=== PATIENT | male | born 1955 | race African-American/Black ===

== ENCOUNTER 2017-01-13 21:58 | Observation (INO) | payer MEDICAID, OTHER ==
[~2017-01-13] VITALS: Ht 177.8 cm; Wt 84.0 kg
[~2017-01-13 21:58] MED LIST: LISI-363 PO; NORV5TAB PO; RANI150 PO
[2017-01-13 22:06] VITALS: BP 135/97; PULSE 97; RESP 16; TEMP 98; O2SAT 97
[2017-01-14] MEDS ORDERED: OXYC-395 PO (04:19)
[2017-01-14] MEDS ORDERED: ZANT150T2 PO (04:19)
[2017-01-14] MEDS ORDERED: AMLO5 PO (04:19)
[2017-01-14] MEDS ORDERED: SUCRALFATE 1 GM/10 ML CUP PO ONE (05:15)
--- NOTE | 2017-01-14 05:16 | PD ---
HPI Chief Complaint: Medical Clearance Time Seen by Provider: 05:11 Travel History International Travel<30 days: No Contact w/Intl Traveler<30days: No Traveled to known affect area: No History of Present Illness HPI 61-year-old male presents to the emergency department for evaluation of abdominal pain and increasing girth. Patient admits to daily alcohol use. Patient states he's been drinking alcohol daily since November 15. Patient has history of previous alcoholism and pancreatitis. Patient also admits to cocaine abuse. Patient denies any chest pain or shortness of breath. Patient' s had no hemoptysis or coffee-ground emesis. Or hematemesis. Patient also had no change in his bowel movements. Patient states he has normal bowel movements and no melena or hematochezia. Patient states that he is hungry. Patient denies any recent febrile illness or chills. Patient states that because of his increasing abdominal girth he decided to come to the hospital to be evaluated. Patient rates his overall pain 510/10 in intensity. Patient admits to substance use. PFSH Past Medical History Narrative Medical Hypertension pancreatitis alcohol use/abuse polysubstance ingestion nursing notes reviewed Cardiovascular Problems: Yes (HTN) Hypertension: Yes Pancreatitis: Yes Influenza Vaccination: No Social History Alcohol Use: Yes ( beer and liquor daily) Tobacco Use: No (1ppd) Substance Use: Yes (marijuana/cocoaine) Allergies-Medications (Allergen,Severity, Reaction): Coded Allergies: Milk (Verified Adverse Reaction, Severe, Nausea/Vomiting, 01/13/17) Reported Meds & Prescriptions Reported Meds & Active Scripts Active Reported Oxycodone (Oxycodone HCl) 10 Mg Tab 10 Mg PO Q6H PRN Zantac (Ranitidine HCl) 150 Mg Tab 150 Mg PO DAILY Norvasc (Amlodipine Besylate) 5 Mg Tab 5 Mg PO DAILY Review of Systems Except as stated in HPI: all other systems reviewed are Neg General / Constitutional: No: Fever, Chills Eyes: No: Visual changes HENT: No: Headaches Cardiovascular: No: Chest Pain or Discomfort Respiratory: No: Shortness of Breath Gastrointestinal: Positive: Abdominal Pain, Other, No: Nausea, Vomiting, Diarrhea Genitourinary: No: Dysuria, Flank Pain (increasing abdominal girth) Musculoskeletal: No: Myalgias, Arthralgias Skin: No Rash Neurologic: No: Weakness, Dizziness, Syncope Psychiatric: Positive: Substance Abuse, No: Anxiety Hematologic/Lymphatic: No: Easy Bruising Physical Exam Narrative Well-developed well-nourished male in no acute distress no respiratory distress GENERAL: SKIN: Warm and dry. HEAD: Atraumatic. Normocephalic. EYES: Pupils equal and round. No scleral icterus. No injection or drainage. ENT: No nasal bleeding or discharge. Mucous membranes pink and moist. NECK: Trachea midline. No JVD. CARDIOVASCULAR: Regular rate and rhythm. RESPIRATORY: No accessory muscle use. Clear to auscultation. Breath sounds equal bilaterally. GASTROINTESTINAL: Abdomen soft, non-tender, mild fluid wave, nondistended. Hepatic and splenic margins not palpable. MUSCULOSKELETAL: Extremities without clubbing, cyanosis, or edema. No obvious deformities. NEUROLOGICAL: Awake and alert. No obvious cranial nerve deficits. Motor grossly within normal limits. Five out of 5 muscle strength in the arms and legs. Normal speech. PSYCHIATRIC: Appropriate mood and affect; insight and judgment normal. Data Data Last Documented VS Vital Signs Date Time Temp Pulse Resp B/P Pulse Ox O2 Delivery O2 Flow Rate FiO2 01/13/17 22:06 98.0 97 16 135/97 97 Room Air Orders Complete Blood Count With Diff (01/14/17 05:11) Comprehensive Metabolic Panel (01/14/17 05:11) Urinalysis - C+S If Indicated (01/14/17 05:11) Psych Screen (01/14/17 05:11) Drug Screen, Random Urine (01/14/17 05:11) Alcohol (Ethanol) (01/14/17 05:11) Lipase (01/14/17 05:11) Sucralfate Liq (Carafate Liq) (01/14/17 05:15) Electrocardiogram (01/14/17 ) Ckmb (Isoenzyme) Profile (01/14/17 07:37) Troponin I (01/14/17 07:37) Chest, Single Ap (01/14/17 07:37) Labs Laboratory Tests Test 01/14/17 05:30 White Blood Count 5.9 TH/MM3 Red Blood Count 4.73 MIL/MM3 Hemoglobin 14.5 GM/DL Hematocrit 41.7 % Mean Corpuscular Volume 88.0 FL Mean Corpuscular Hemoglobin 30.7 PG Mean Corpuscular Hemoglobin 34.8 % Concent Red Cell Distribution Width 16.9 % Platelet Count 143 TH/MM3 Mean Platelet Volume 10.0 FL Neutrophils (%) (Auto) 35.5 % Lymphocytes (%) (Auto) 40.8 % Monocytes (%) (Auto) 15.9 % Eosinophils (%) (Auto) 6.9 % Basophils (%) (Auto) 0.9 % Neutrophils # (Auto) 2.1 TH/MM3 Lymphocytes # (Auto) 2.4 TH/MM3 Monocytes # (Auto) 0.9 TH/MM3 Eosinophils # (Auto) 0.4 TH/MM3 Basophils # (Auto) 0.1 TH/MM3 CBC Comment DIFF FINAL Differential Comment MDM Medical Decision Making Medical Screen Exam Complete: Yes Emergency Medical Condition: Yes Medical Record Reviewed: Yes Interpretation(s) CBC & BMP Diagram 01/14/17 05:30 EKG normal sinus rhythm with rare PVC incomplete right bundle branch block no acute ST elevation or injury pattern change noted Differential Diagnosis Abdominal pain, cirrhosis, alcoholism, polysubstance ingestion, ACS, [place], arrhythmia, electronic disturbance Narrative Course IV access obtained, specimens could be collected Patient repeatedly asking for food and something to drink and states his pain is not being addressed; patient again informed that we need all of his lab work including a urine specimen to help better assess his condition Patient sleeping upon awakening states he is having abdominal pain; again with direct palpation there is no guarding no rebound and abdomen is nontender lab values pending At 7 AM lab values remain pending and care is signed over to oncoming physician Bharti Mcadams MD Jan 14, 2017 05:16
[2017-01-14 05:51] LABS: AUTOMATED NEUTROPHIL # 2.1 TH/MM3 (1.8-7.7); BASOPHIL # 0.1 TH/MM3 (0-0.2); BASOPHIL % 0.9 % (0.0-2.0); EOSINOPHIL # 0.4 TH/MM3 (0-0.4); EOSINOPHIL % 6.9 % (0.0-4.0); HEMATOCRIT 41.7 % (39.0-51.0); HEMO FLAGS DIFF FINAL; LYMPH % 40.8 % (9.0-44.0); LYMPHOCYTE # 2.4 TH/MM3 (1.0-4.8); MEAN CORPUSCULAR HEMOGLOBIN 30.7 PG (27.0-34.0); MEAN CORPUSCULAR HGB CONC 34.8 % (32.0-36.0); MONO % 15.9 % (0.0-8.0); NEUT % 35.5 % (16.0-70.0); PLATELET COUNT 143 TH/MM3 (150-450); RED BLOOD COUNT 4.73 MIL/MM3 (4.50-5.90); RED CELL DISTRIBUTION WIDTH 16.9 % (11.6-17.2); WHITE BLOOD COUNT 5.9 TH/MM3 (4.0-11.0)
--- NOTE | 2017-01-14 07:45 | PD ---
Physical Exam Date Seen by Provider: Jan 14, 2017 Data Data Last Documented VS Vital Signs Date Time Temp Pulse Resp B/P Pulse Ox O2 Delivery O2 Flow Rate FiO2 01/14/17 09:06 50 14 156/72 95 Room Air 01/13/17 22:06 98.0 Orders Complete Blood Count With Diff (01/14/17 05:11) Comprehensive Metabolic Panel (01/14/17 05:11) Urinalysis - C+S If Indicated (01/14/17 05:11) Psych Screen (01/14/17 05:11) Drug Screen, Random Urine (01/14/17 05:11) Alcohol (Ethanol) (01/14/17 05:11) Lipase (01/14/17 05:11) Sucralfate Liq (Carafate Liq) (01/14/17 05:15) Electrocardiogram (01/14/17 ) Chest, Single Ap (01/14/17 07:37) Aspirin (Aspirin) (01/14/17 08:15) Nitroglycerin Sl (Nitrostat Sl) (01/14/17 08:15) Electrocardiogram (01/14/17 ) Ckmb (Isoenzyme) Profile (01/14/17 07:55) Troponin I (01/14/17 07:55) Amlodipine (Norvasc) (01/14/17 08:45) CKMB (01/14/17 07:55) CKMB% (01/14/17 07:55) ^ Sitter (01/14/17 09:09) Labs Laboratory Tests Test 01/14/17 01/14/17 01/14/17 05:30 07:45 07:55 White Blood Count 5.9 TH/MM3 Red Blood Count 4.73 MIL/MM3 Hemoglobin 14.5 GM/DL Hematocrit 41.7 % Mean Corpuscular Volume 88.0 FL Mean Corpuscular Hemoglobin 30.7 PG Mean Corpuscular Hemoglobin 34.8 % Concent Red Cell Distribution Width 16.9 % Platelet Count 143 TH/MM3 Mean Platelet Volume 10.0 FL Neutrophils (%) (Auto) 35.5 % Lymphocytes (%) (Auto) 40.8 % Monocytes (%) (Auto) 15.9 % Eosinophils (%) (Auto) 6.9 % Basophils (%) (Auto) 0.9 % Neutrophils # (Auto) 2.1 TH/MM3 Lymphocytes # (Auto) 2.4 TH/MM3 Monocytes # (Auto) 0.9 TH/MM3 Eosinophils # (Auto) 0.4 TH/MM3 Basophils # (Auto) 0.1 TH/MM3 CBC Comment DIFF FINAL Differential Comment Urine Color YELLOW Urine Turbidity CLEAR Urine pH 6.0 Urine Specific [place] 1.022 Urine Protein TRACE mg/dL Urine Glucose (UA) NEG mg/dL Urine Ketones 10 mg/dL Urine Occult Blood NEG Urine Nitrite NEG Urine Bilirubin NEG Urine Urobilinogen 8.0 MG/DL Urine Leukocyte Esterase NEG Urine WBC 1 /hpf Urine Mucus FEW /lpf Microscopic Urinalysis Comment CULT NOT INDICATED Urine Opiates Screen NEG Urine Barbiturates Screen NEG Urine Amphetamines Screen NEG Urine Benzodiazepines Screen POS Urine Cocaine Screen POS Urine Cannabinoids Screen POS Sodium Level 138 MEQ/L Potassium Level 3.8 MEQ/L Chloride Level 104 MEQ/L Carbon Dioxide Level 25.4 MEQ/L Anion Gap 9 MEQ/L Blood Urea Nitrogen 15 MG/DL Creatinine 1.03 MG/DL Estimat Glomerular Filtration 89 ML/MIN Rate Random Glucose 107 MG/DL Calcium Level 8.8 MG/DL Total Bilirubin 0.9 MG/DL Aspartate Amino Transf 75 U/L (AST/SGOT) Alanine Aminotransferase 104 U/L (ALT/SGPT) Alkaline Phosphatase 85 U/L Total Creatine Kinase 350 U/L Creatine Kinase MB 2.0 NG/ML Creatine Kinase MB % 0.6 % Troponin I 0.03 NG/ML Total Protein 8.7 GM/DL Albumin 3.8 GM/DL Lipase 332 U/L Ethyl Alcohol Level LESS THAN 3 MG/DL [facility] Medical Record Reviewed: Yes Supervised Visit with LELA: No Interpretation(s) Vital Signs Date Time Temp Pulse Resp B/P Pulse Ox O2 Delivery O2 Flow Rate FiO2 01/13/17 22:06 98.0 97 16 135/97 97 Room Air CBC & BMP Diagram 01/14/17 05:30 Differential Diagnosis cocaine chest pain, suicidal ideations, alcoholism, liver cirrhosis, polysubstance abuse, ACS, arrhythmia, electrolyte abnormality Narrative Course Patient was signed out to me at change of shift Patient is a 61-year-old male who was sent to the emergency room by Danny Johnson for medical evaluation. As per patient, he is an alcoholic, reports that he has been drinking heavily for a while now, reports that he is also been using drugs. Patient reports that he has been using cocaine and every time he uses cocaine, he has chest pain. Patient reports that he did abuse cocaine last night and began to have chest pain after using this drugs. Patient reports that he went to [facility] for evaluation, was told to come to the emergency room for medical clearance. Patient reports that he is feeling suicidal, reports that if he leaves this emergency room, he will go and commit suicide. Labs pending including cardiac enzymes, EKG at 0532: Normal sinus rhythm at 97 bpm, incomplete right bundle branch block, QT/QTC 377/431 Patient will require admission for acute chest pain with suicidal ideations patient now complaining of chest pain - repeat ekg ordered as well as ce, will give asa and sl nitro Physician Communication Physician Communication case reviewed with dr madison who accepts pt to service Diagnosis Primary Impression: Cocaine abuse Additional Impressions: Chest pain Qualified Code: R07.9 - Chest pain, unspecified type Suicidal ideation Alcohol abuse Admitting Information Admitting Physician Requests: Observation Leslie Barraza DO Jan 14, 2017 07:45
[2017-01-14 08:04] VITALS: BP 161/114; PULSE 92; RESP 12; O2SAT 95
[2017-01-14 08:05] VITALS: BP 161/114; PULSE 92; RESP 15; O2SAT 95
[2017-01-14 08:06] LABS: BLOOD, URINE NEG (NEG); COMMENT (UR) CULT NOT INDICATED; CULTURE IF INDICATED CULT NOT INDICATED; GLUCOSE,URINE NEG (NEG); KETONE, URINE 10 mg/dL (NEG); MUCUS URINE FEW /lpf (OCC); NITRITE,URINE NEG (NEG); URINE COLOR YELLOW (YELLW/STRAW)
[2017-01-14] MEDS: NITROGLYCERIN 0.4 MG SL 25 TABS/BTL SL SCH ×3 (08:08→08:25)
[2017-01-14] MEDS ORDERED: ASPIRIN 325 MG TAB PO ONE (08:15)
--- NOTE | 2017-01-14 08:17 | RADRPT ---
EXAM DATE/TIME: 01/14/2017 07:56 [place] COMPARISON: No previous studies available for comparison. INDICATIONS : Chest pains with abdomen pains, and distention. MEDICAL HISTORY : Myocardial infarction. SURGICAL HISTORY : None. ENCOUNTER: Initial ACUITY: 2 days PAIN SCORE: 9/10 LOCATION: Bilateral chest FINDINGS: A single view of the chest demonstrates the lungs to be symmetrically aerated without evidence of mas s, infiltrate or effusion. The cardiomediastinal contours are unremarkable. Osseous structures are intact. CONCLUSION: No acute disease. Stevan Solis MD on January 14, 2017 at 8:15 Board Certified Radiologist. This report was verified electronically.
[2017-01-14 08:33] LABS: ANION GAP 9 MEQ/L (5-15)
[2017-01-14 08:34] LABS: ALKALINE PHOSPHATASE 85 U/L (45-117); ALT (GPT) 104 U/L (12-78); AST (GOT) 75 U/L (15-37); BICARBONATE 25.4 MEQ/L (21.0-32.0); BLOOD UREA NITROGEN 15 MG/DL (7-18); CHLORIDE 104 MEQ/L (98-107); GLOMERULAR FILTRATION RATE 89 ML/MIN (>89); POTASSIUM 3.8 MEQ/L (3.5-5.1); SODIUM (NA) 138 MEQ/L (136-145); TOTAL BILIRUBIN ADULT 0.9 MG/DL (0.2-1.0)
[2017-01-14] MEDS ORDERED: amLODIPine BESYLATE 5 MG TAB PO ONE (08:45)
[2017-01-14 08:53] LABS: CREATINE KINASE 350 U/L (39-308)
[2017-01-14 08:57] LABS: AMPHETAMINE, URINE NEG (NEG); BARBITURATES, URINE NEG (NEG); COCAINE, URINE POS (NEG)
[2017-01-14 09:06] VITALS: BP 156/72; PULSE 50; RESP 14; O2SAT 95
[2017-01-14] MEDS ORDERED: NITROGLYCERIN 0.4 MG SL 25 TABS/BTL SL PRN (09:45)
[2017-01-14] MEDS ORDERED: SODIUM CHLORIDE 0.9% FLUSH 5 ML FLUSH IV PRN (09:45)
--- NOTE | 2017-01-14 13:41 | HHI.HP ---
[facility] Primary Care Physician No Primary Care Physician Admission Diagnosis cocaine chest pain, suicidal idealations, alcohol abuse Diagnoses: (1) Chest pain Diagnosis: Principal (2) Alcohol abuse (3) Cocaine abuse (4) Suicidal ideation Chief Complaint: Chest pain Travel History International Travel<30 Days: No Contact w/Intl Traveler <30 Da: No Traveled to Known Affected Are: No History of Present Illness The patient is a 61-year-old male who presented to the emergency department after being referred from [facility] for medical clearance. He has a history of alcoholism and polysubstance abuse. He reports that he drinks "as much as I can get". He also admits to recent cocaine use, most recently yesterday. He states that he gets chest pain whenever he uses cocaine. Currently he is still reporting pain in the left side of the chest does not radiate. He states that the pain is intermittent. He reports that his abdomen has gotten larger recently. No current abdominal pain. Review of Systems Constitutional: DENIES: Fever, Chills, Night Sweats Eyes: DENIES: Blurred vision, Vision loss Ears, nose, mouth, throat: DENIES: Hearing loss Respiratory: DENIES: Cough, Wheezing, Sputum production, Shortness of breath Cardiovascular: COMPLAINS OF: Chest pain, DENIES: Palpitations, Dyspnea on Exertion, Lower Extremity Edema Gastrointestinal: DENIES: Abdominal pain, Constipation, Diarrhea, Nausea, Vomiting Genitourinary: DENIES: Urinary frequency, Urinary incontinence, Urgency, Hematuria, Dysuria, Nocturia Musculoskeletal: DENIES: Joint pain, Muscle aches Integumentary: DENIES: Pruritus, Rash Hematologic/lymphatic: DENIES: Bruising Neurologic: DENIES: Headache Psychiatric: COMPLAINS OF: Anxiety, Suicidal Ideation Past Family Social History Past Medical History Anxiety Bipolar disorder Reported history of HI Hypertension History of pancreatitis Reported Medications Oxycodone (Oxycodone HCl) 10 Mg Tab 10 Mg PO Q6H PRN Zantac (Ranitidine HCl) 150 Mg Tab 150 Mg PO DAILY Norvasc (Amlodipine Besylate) 5 Mg Tab 5 Mg PO DAILY Allergies: Coded Allergies: Milk (Verified Adverse Reaction, Severe, Nausea/Vomiting, 01/13/17) Family History Depression Alcoholism Social History Smokes one pack per day. Admits to marijuana and cocaine use. Reports heavy alcohol use. Physical Exam Vital Signs Vital Signs Date Time Temp Pulse Resp B/P Pulse Ox O2 Delivery O2 Flow Rate FiO2 01/14/17 09:06 50 14 156/72 95 Room Air 01/14/17 08:05 92 15 161/114 95 Room Air 01/14/17 08:04 92 12 161/114 95 Room Air 01/13/17 22:06 98.0 97 16 135/97 97 Room Air Physical Exam GENERAL: Well-nourished, well-developed male in no acute distress. HEENT: Normocephalic, atraumatic. Pupils equal, round and reactive. Extraocular movements intact. No scleral icterus. No injection or drainage. Oropharynx is clear. Mucous membranes are moist. Poor dentition. CARDIOVASCULAR: Regular rate and rhythm without murmurs, gallops, or rubs. RESPIRATORY: Clear to auscultation. No wheezes, rales, or rhonchi. Breathing is non-labored. GASTROINTESTINAL: Abdomen soft, non-tender, mildly stented. EXTREMITIES: No lower extremity edema. No calf tenderness. PSYCH: Alert and oriented x 3. Laboratory Laboratory Tests Test 01/14/17 01/14/17 01/14/17 05:30 07:45 07:55 White Blood Count 5.9 Red Blood Count 4.73 Hemoglobin 14.5 Hematocrit 41.7 Mean Corpuscular Volume 88.0 Mean Corpuscular Hemoglobin 30.7 Mean Corpuscular Hemoglobin 34.8 Concent Red Cell Distribution Width 16.9 Platelet Count 143 Mean Platelet Volume 10.0 Neutrophils (%) (Auto) 35.5 Lymphocytes (%) (Auto) 40.8 Monocytes (%) (Auto) 15.9 Eosinophils (%) (Auto) 6.9 Basophils (%) (Auto) 0.9 Neutrophils # (Auto) 2.1 Lymphocytes # (Auto) 2.4 Monocytes # (Auto) 0.9 Eosinophils # (Auto) 0.4 Basophils # (Auto) 0.1 CBC Comment DIFF FINAL Differential Comment Urine Color YELLOW Urine Turbidity CLEAR Urine pH 6.0 Urine Specific [place] 1.022 Urine Protein TRACE Urine Glucose (UA) NEG Urine Ketones 10 Urine Occult Blood NEG Urine Nitrite NEG Urine Bilirubin NEG Urine Urobilinogen 8.0 Urine Leukocyte Esterase NEG Urine WBC 1 Urine Mucus FEW Microscopic Urinalysis Comment CULT NOT INDICATED Urine Opiates Screen NEG Urine Barbiturates Screen NEG Urine Amphetamines Screen NEG Urine Benzodiazepines Screen POS Urine Cocaine Screen POS Urine Cannabinoids Screen POS Sodium Level 138 Potassium Level 3.8 Chloride Level 104 Carbon Dioxide Level 25.4 Anion Gap 9 Blood Urea Nitrogen 15 Creatinine 1.03 Estimat Glomerular Filtration 89 Rate Random Glucose 107 Calcium Level 8.8 Total Bilirubin 0.9 Aspartate Amino Transf 75 (AST/SGOT) Alanine Aminotransferase 104 (ALT/SGPT) Alkaline Phosphatase 85 Total Creatine Kinase 350 Creatine Kinase MB 2.0 Creatine Kinase MB % 0.6 Troponin I 0.03 Total Protein 8.7 Albumin 3.8 Lipase 332 Ethyl Alcohol Level LESS THAN 3 Result Diagram: 01/14/17 0530 01/14/17 0755 Imaging Last Impressions Chest X-Ray 01/14/17 0737 Signed Impressions: Service Date/Time: January 07:56 - CONCLUSION: No acute disease. Stevan Solis MD Assessment and Plan Assessment and Plan 1. Chest pain: Likely secondary to cocaine use, but patient does report history of HI. Initial set of cardiac enzymes is negative. Monitor serial cardiac enzymes. Monitor on telemetry. Nitroglycerin as needed. 2. Hypertension: Continue Norvasc. 3. Severe anxiety, bipolar disorder: Appreciate psychiatry recommendations. Patient is not currently on any psychiatric medications. 4. Polysubstance abuse: Patient has been counseled. Urine drug screen positive for cocaine, cannabinoids, benzodiazepines. 5. Suicidal ideation: Patient made suicidal statements in the ER. Psychiatry has been consulted. Discussed with Dr. Virk. Patient does not meet criteria for inpatient psychiatric admission. 6. GI prophylaxis: PPI. 7. DVT prophylaxis: Lovenox. 8. Elevated LFTs: Check hepatitis profile. Repeat labs in AM. Check abdominal ultrasound. Problem Qualifiers (1) Chest pain: Qualified Code: R07.9 - Chest pain, unspecified type Ming Rogers MD Jan 14, 2017 13:41
[2017-01-14] MEDS: PANTOPRAZOLE SOD 40 MG DELAYED RELEASE TAB PO SCH (14:31)
[2017-01-14] MEDS: ENOXAPARIN SODIUM 40 MG/0.4 ML SYRINGE SQ SCH (14:32)
[2017-01-14] MEDS ORDERED: hydrOXYzine HCL 50 MG TAB PO STA (14:44)
[2017-01-14] MEDS ORDERED: QUEtiapine FUMARATE 100 MG TAB PO ONE (14:45)
[2017-01-14 14:49] VITALS: PULSE 95
--- NOTE | 2017-01-14 15:01 | PD.CONS ---
Provisional Diagnosis Admission Date Jan 14, 2017 at 09:48 [place] I. Polysubstance dependence, including cocaine, benzodiazepines, cannabis, alcohol , self reported anxiety and depression [place] II. R/O antisocial personality disorder [place] III. Hypertension, chest pain [place] IV. Lack of family and social support, history of incarcerations and violent behavior [place] V. 56 History of Present Illness Service Psychiatry Consult Requested By Primary Care Physician No Primary Care Physician HPI The patient is a 61-year-old man, domicile with friends, unemployed, on disability, with self-reported psychiatric history of anxiety and depression, multiple psychotic hospitalizations, polysubstance dependence, including cocaine, benzodiazepines, cannabis and alcohol, previous suicidal attempts, history of aggressive behavior, incarcerations, longest period imprisoned 20 years, medical history hypertension, who came to the hospital with abdominal and chest pain in the context of cocaine intoxication. Patient has been very needy in the ER, drug seeking, intrusive and demanding, requesting to be treated with narcotics and benzodiazepine, but once denied this medications he expressed suicidal ideation and was Rodriguez acted. On psychiatric evaluation patient is found eating his lunch, he is calm, cooperative, he states that he has been mad because the nurses are not taking care of him "and they have been disrespectful with me telling me to my problem is a cocaine problem". Patient reports angry mood, but denies suicidal and homicidal ideation this moment, denies visual and auditory hallucinations. Patient states that he would like to speak with a certified social workers in health care because he wants to get an apartment or maybe he wants to go back to a state hospital. He says that he wants to be medically treated for his chest pain, but he wants to get some medication for anxiety and for leg pain. He reports daily use of cocaine, marijuana, and alcohol. When asked about what is getting benzodiazepines from, he denies the use of benzodiazepine, confronted about benzodiazepine positive in toxicology he states"I don't know". Patient is fully oriented 3. Review of Systems Constitutional: DENIES: Diaphoretic episodes, Fatigue, Fever, Weight gain, Weight loss, Chills, Dizziness, Change in appetite, Night Sweats Endocrine: DENIES: Heat/cold intolerance, Polydipsia, Polyuria, Polyphagia Eyes: DENIES: Blurred vision, Diplopia, Eye inflammation, Eye pain, Vision loss , Photosensitivity, Double Vision Ears, nose, mouth, throat: DENIES: Tinnitus, Hearing loss, Vertigo, Nasal discharge, Oral lesions, Throat pain, Hoarseness, Ear Pain, Running Nose, Epistaxis, Sinus Pain, Toothache, Odynophagia Respiratory: DENIES: Apneas, Cough, Snoring, Wheezing, Hemoptysis, Sputum production, Shortness of breath Gastrointestinal: DENIES: Abdominal pain, Black stools, Bloody stools, Constipation, Diarrhea, Nausea, Vomiting, Difficulty Swallowing, Anorexia Genitourinary: DENIES: Sexual dysfunction, Urinary frequency, Urinary incontinence, Urgency, Hematuria, Dysuria, Nocturia, Penile Discharge, Testicular Pain, Testicular Swelling Musculoskeletal: COMPLAINS OF: Joint pain, Back pain Hematologic/lymphatic: DENIES: Bruising, Lymphadenopathy Immunologic/allergic: DENIES: Eczema, Urticaria Neurologic: DENIES: Abnormal gait, Headache, Localized weakness, Paresthesias, Seizures, Speech Problems, Tremor, Poor Balance Psychiatric: DENIES: Anxiety, Confusion, Mood changes, Depression, Hallucinations, Agitation, Suicidal Ideation, Homicidal Ideation, Delusions Past Family Social History Coded Allergies: Milk (Verified Adverse Reaction, Severe, Nausea/Vomiting, 01/13/17) Reported Medications Oxycodone 10 Mg Tab10 Mg PO Q6H PRN (PAIN) Ref 0 01/14/17 Ranitidine (Zantac)150 Mg [id number] Mg PO DAILY #30 TAB Ref 0 01/14/17 Amlodipine (Norvasc)5 Mg Tab5 Mg PO DAILY #30 TAB Ref 0 01/14/17 Current Medications Medications (Trade) Dose Ordered Sig/Cindi Route Start Time Stop Time Status Last Admin (NS Flush) 2 ml BID IV 01/14/17 21:00 (NS Flush) 2 ml UNSCH PRN IV 01/14/17 09:45 (Aspirin) 325 mg DAILY PO 01/15/17 09:00 (Nitrostat Sl) 0.4 mg Q5M PRN SL 01/14/17 09:45 (Lovenox Inj) 40 mg Q24H SQ 01/14/17 15:00 01/14/17 14:32 (Protonix) 40 mg DAILY PO 01/14/17 15:00 01/14/17 14:31 (Norvasc) 5 mg DAILY PO 01/15/17 09:00 (SEROquel) 50 mg STAT ONCE PO 01/14/17 14:45 01/14/17 14:46 UNV Family History He denies Social History Patient was born and raised in [place], he has been living in [place] several friends and family members, unemployed, disabled, highest level of education is GED Physical Exam Vital Signs Vital Signs Date Time Temp Pulse Resp B/P Pulse Ox O2 Delivery O2 Flow Rate FiO2 01/14/17 09:06 50 14 156/72 95 Room Air 01/13/17 22:06 98.0 Mental Status Examination Appearance man, disheveled, poor hygiene, cooperative, but irritable and demanding Speech: Unremarkable Orientation: x3 Memory: Unremarkable Thought Process: Logical Thought Content: Unremarkable Hallucination Type: None Suicidal Ideation: No Previous Suicide Attempts: No Homicidal Ideation: No Judgement: WNL Affect: Irritable Mood: Angry Motor Activity: Normal gait Assessment & Plan Problem List: (1) Polysubstance dependence Assessment & Plan: The patient is a 61-year-old man, domicile with friends, unemployed, on disability, with self-reported psychiatric history of anxiety and depression, multiple psychotic hospitalizations, polysubstance dependence, including cocaine, benzodiazepines, cannabis and alcohol, previous suicidal attempts, history of aggressive behavior, incarcerations, longest period imprisoned 20 years, medical history hypertension, who came to the hospital with abdominal and chest pain in the context of cocaine intoxication. As per nursing reports in the ER the patient has been irritable, demanding extra attention, at times disrespectful with nurses, requesting to be medicated with benzodiazepines and narcotics and endorsing suicidal ideation if he is not treated his way. On psychiatric evaluation patient is found lunch, calm, cooperative, a little bit irritable, demanding, reports angry mood in the context of not being given medication for anxiety and being disrespected by nurses, but he denies active suicidal ideation, homicidal ideation, denies visual and auditory hallucinations at this moment. Patient does not meet criteria for psychiatric admission at this time. Rodriguez act will be lifted. Based on his psychiatric history, interaction with the patient, his social history and sustained substance use, there are many elements of patient temperament and character suggest a personality pathology. His recent suicidal statements are more a way to negotiate and blackmail the medical staff than a real suicide ideation secondary to a psychiatric illness. Will order Seroquel 50 mg stat and hydroxyzine 50 mg stat by mouth for his report anxiety and to help with behavioral control. Extensive support, motivation psycho education provided. ICD Code: F19.20 Assessment & Plan Estimated LOS: Bo Avendaño MD Jan 14, 2017 15:01
--- NOTE | 2017-01-14 15:24 | RADRPT ---
EXAM DATE/TIME: 01/14/2017 14:38 [facility] COMPARISON: No previous studies available for comparison. INDICATIONS : Abdominal pain and distention. MEDICAL HISTORY : Hypertension. Pancreatitis. Alcohol and substance use. SURGICAL HISTORY : Left knee and hip surgery. ENCOUNTER: Initial ACUITY: 3 days PAIN SCORE: 4/10 LOCATION: Abdomen. MEASUREMENTS: LIVER: 17.5 cm length COMMON DUCT: 6 mm RIGHT KIDNEY: 12.4 x 4.8 x 6.1 cm LEFT KIDNEY: 12.0 x 4.9 x 5.7 cm SPLEEN: 9.1 cm length AORTA: 2.5cm maximal FINDINGS: LIVER: Increased echotexture without focal lesion or ductal dilatation. COMMON DUCT: No intraluminal mass or stone visualized. GALLBLADDER: Contains numerous stones, however demonstrates no wall thickening or pericholecystic fluid. PANCREAS: The visualized portions are within normal limits. RIGHT KIDNEY: No hydronephrosis, stone or mass. LEFT KIDNEY: No hydronephrosis, stone or mass. SPLEEN: No focal lesion. AORTA: Non aneurysmal. IVC: Within normal limits. CONCLUSION: Normal examination except for numerous gallstones and a mildly fatty liver. Yung Gimenez MD on January 14, 2017 at 15:21 Board Certified Radiologist. This report was verified electronically.
[2017-01-14 17:54] VITALS: BP 136/83; PULSE 82; RESP 18; TEMP 98.2; O2SAT 94
[2017-01-14] MEDS: SODIUM CHLORIDE 0.9% FLUSH 5 ML FLUSH IV SCH (21:00)
[2017-01-14] MEDS: ACETAMINOPHEN 325 MG TAB PO PRN (21:35)
[2017-01-14 22:10] VITALS: PULSE 90
[2017-01-15] VITALS (8 sets, daily range): BP systolic 130–153; BP diastolic 90–102; PULSE 78–87; RESP 18–19; TEMP 97.8–98.6; O2SAT 95–98
[2017-01-15 07:45] LABS: AUTOMATED NEUTROPHIL # 1.8 TH/MM3 (1.8-7.7); BASOPHIL # 0.1 TH/MM3 (0-0.2); BASOPHIL % 1.9 % (0.0-2.0); EOSINOPHIL # 0.4 TH/MM3 (0-0.4); EOSINOPHIL % 7.8 % (0.0-4.0); HEMATOCRIT 42.8 % (39.0-51.0); HEMO FLAGS DIFF FINAL; LYMPH % 37.3 % (9.0-44.0); LYMPHOCYTE # 1.7 TH/MM3 (1.0-4.8); MEAN CELL VOLUME 89.3 FL (80.0-100.0); MEAN CORPUSCULAR HGB CONC 33.6 % (32.0-36.0); PLATELET COUNT 138 TH/MM3 (150-450); RED BLOOD COUNT 4.79 MIL/MM3 (4.50-5.90); RED CELL DISTRIBUTION WIDTH 16.7 % (11.6-17.2); WHITE BLOOD COUNT 4.6 TH/MM3 (4.0-11.0)
[2017-01-15 08:04] LABS: ALKALINE PHOSPHATASE 75 U/L (45-117); ALT (GPT) 74 U/L (12-78); ANION GAP 9 MEQ/L (5-15); AST (GOT) 45 U/L (15-37); BICARBONATE 25.1 MEQ/L (21.0-32.0); BLOOD UREA NITROGEN 15 MG/DL (7-18); CHLORIDE 105 MEQ/L (98-107); GLOMERULAR FILTRATION RATE 103 ML/MIN (>89); POTASSIUM 3.5 MEQ/L (3.5-5.1); SODIUM (NA) 139 MEQ/L (136-145); TOTAL BILIRUBIN ADULT 0.5 MG/DL (0.2-1.0)
[2017-01-15] MEDS: SODIUM CHLORIDE 0.9% FLUSH 5 ML FLUSH IV SCH ×2 (08:12→21:07)
[2017-01-15] MEDS: ASPIRIN 325 MG TAB PO SCH (08:12)
[2017-01-15] MEDS: amLODIPine BESYLATE 5 MG TAB PO SCH (08:12)
[2017-01-15] MEDS: PANTOPRAZOLE SOD 40 MG DELAYED RELEASE TAB PO SCH ×2 (08:22→08:37)
[2017-01-15] MEDS ORDERED: SERO300T PO (08:32)
[2017-01-15] MEDS ORDERED: LORA-475 PO (08:32)
[2017-01-15] MEDS: ACETAMINOPHEN 325 MG TAB PO PRN (08:37)
--- NOTE | 2017-01-15 09:55 | HHI.PR ---
Subjective Remarks Follow-up chest pain, abdominal pain, elevated LFTs. The patient states that he is having more abdominal pain today. Also having pain in his back, knees, arms, shoulders. States that his chest pain is less today. Denies cough or dyspnea. Requesting more pain medication. Objective Vitals Vital Signs Date Time Temp Pulse Resp B/P Pulse Ox O2 Delivery O2 Flow Rate FiO2 01/15/17 09:41 18 01/15/17 07:19 98.3 78 18 153/101 97 01/15/17 03:34 98.3 80 19 130/90 95 01/15/17 01:02 98.0 80 18 131/96 95 01/14/17 22:10 90 01/14/17 17:54 98.2 82 18 136/83 94 01/14/17 14:49 95 Result Diagram: 01/15/17 0643 01/15/17 0643 Imaging Last Impressions Chest X-Ray 01/14/17 0737 Signed Impressions: Service Date/Time: January 07:56 - CONCLUSION: No acute disease. Stevan Solis MD Abdomen Ultrasound 01/14/17 0000 Signed Impressions: Service Date/Time: January 14:38 - CONCLUSION: Normal examination except for numerous gallstones and a mildly fatty liver. Yung Gimenez MD Objective Remarks General: No acute distress. Heart: Regular rate and rhythm. No murmur. Lungs: Clear to auscultation bilaterally. No wheezes, rales, or rhonchi. Breathing is nonlabored. Abdomen: Soft, mild diffuse tenderness to palpation without rebound or guarding , mildly distended. Extremities: No lower extremity edema. Psych: Alert and oriented. Procedures None Urinary Catheter: No Vascular Central Line Catheter: No A/P Problem List: (1) Chest pain ICD Code: R07.9 Status: Acute (2) Alcohol abuse ICD Code: F10.10 Status: Chronic (3) Cocaine abuse ICD Code: F14.10 Status: Chronic (4) Suicidal ideation ICD Code: R45.851 Status: Resolved (5) Gallstones ICD Code: K80.20 Status: Acute (6) Elevated LFTs ICD Code: R94.5 Status: Acute (7) Polysubstance abuse ICD Code: F19.10 Status: Chronic Assessment and Plan 1. Chest pain: Likely secondary to cocaine use, but patient does report history of GA. Initial set of cardiac enzymes is negative. Serial cardiac enzymes are negative. 2. Hypertension: Continue Norvasc. 3. Severe anxiety, bipolar disorder: Appreciate psychiatry recommendations. Patient is not currently on any psychiatric medications. 4. Polysubstance abuse: Patient has been counseled. Urine drug screen positive for cocaine, cannabinoids, benzodiazepines. 5. Suicidal ideation: Patient made suicidal statements in the ER. Psychiatry has been consulted. Discussed with Dr. Virk. Patient does not meet criteria for inpatient psychiatric admission. 6. GI prophylaxis: PPI. 7. DVT prophylaxis: Lovenox. 8. Elevated LFTs, abdominal pain: Check hepatitis profile. Abdominal ultrasound shows fatty liver and gallstones. LFTs are trending down. Consult GI. Problem Qualifiers (1) Chest pain: Qualified Code: R07.9 - Chest pain, unspecified type Ming Rogers MD Jan 15, 2017 09:55
[2017-01-15] MEDS: traMADol HCL 50 MG TAB PO PRN ×2 (11:12→21:08)
[2017-01-15] MEDS: ENOXAPARIN SODIUM 40 MG/0.4 ML SYRINGE SQ SCH (17:01)
--- NOTE | 2017-01-15 17:16 | PD.CONS ---
HPI History of Present Illness This is a 61 year old male whom we are asked to evaluate for elevated liver function tests apparently he was referred from the [facility] for medical clearance he has a history of alcoholism and polysubstance abuse he is currently laying comfortable in bed denies any pain nausea vomiting diarrhea constipation he reports having had elevated liver function tests in the past and he attributes this to his alcoholism but now he wants to go clean he tells me he's been asked since his was killed in a car accident recently [facility] Past Medical History Anxiety Bipolar disorder Reported history of [place] Hypertension History of pancreatitis Coded Allergies: Milk (Verified Adverse Reaction, Severe, Nausea/Vomiting, 01/13/17) Medications Current Medications Sucralfate (Carafate Liq) 1 gm ONCE ONCE PO Last administered on 01/14/17 06: 33; Start 01/14/17 at 05:15; Stop 01/14/17 at 05:16; Status DC Aspirin (Aspirin) 325 mg ONCE ONCE PO Last administered on 01/14/17 08:07; Start 01/14/17 at 08:15; Stop 01/14/17 at 08:16; Status DC Nitroglycerin (Nitrostat Sl) 0.4 mg Q5M SL Last administered on 01/14/17 08:08 ; Start 01/14/17 at 08:15; Stop 01/14/17 at 08:26; Status DC Amlodipine Besylate (Norvasc) 5 mg ONCE ONCE PO Last administered on 01/14/17 11:01; Start 01/14/17 at 08:45; Stop 01/14/17 at 08:46; Status DC IV Flush (NS Flush) 2 ml BID IV Last administered on 01/15/17 08:12; Start 01/14 at 21:00 IV Flush (NS Flush) 2 ml UNSCH PRN IV FLUSH AFTER USING IV ACCESS; Start at 09:45 Aspirin (Aspirin) 325 mg DAILY PO Last administered on 01/15/17 08:12; Start at 09:00 Nitroglycerin (Nitrostat Sl) 0.4 mg Q5M PRN SL ANGINA; Start 01/14/17 at 09:45 Enoxaparin Sodium (Lovenox Inj) 40 mg Q24H SQ Last administered on 01/15/17 17: 01; Start 01/14/17 at 15:00 Pantoprazole Sodium (Protonix) 40 mg DAILY PO Last administered on 01/15/17 08: 37; Start 01/14/17 at 15:00 Amlodipine Besylate (Norvasc) 5 mg DAILY PO Last administered on 01/15/17 08:12 ; Start 01/15/17 at 09:00 Quetiapine Fumarate (SEROquel) 50 mg STAT ONCE PO Last administered on 15:23; Start 01/14/17 at 14:45; Stop 01/14/17 at 14:47; Status DC Hydroxyzine HCl (Atarax) 50 mg STAT STAT PO Last administered on 01/14/17 15: 23; Start 01/14/17 at 14:44; Stop 01/14/17 at 14:47; Status DC Acetaminophen (Tylenol) 650 mg Q6HR PRN PO PAIN SCALE 1 TO 3 Last administered on 01/15/17 08:37; Start 01/14/17 at 21:15 Tramadol HCl (Ultram) 50 mg Q8H PRN PO PAIN SCALE 4 TO 10 Last administered on 01/15/17 11:12; Start 01/15/17 at 10:30 Family History Depression Alcoholism Social History Smokes one pack per day. Admits to marijuana and cocaine use. Reports heavy alcohol use. Review of Systems ROS Review of systems Patient denies any headache dizziness blurry vision, denies any chest pain shortness of breath cough fever chills, Denies any palpitations or fatigue denies any polyuria dysuria hematuria, denies any numbness tingling or weakness, denies any skin rash pruritus or jaundice, denies any easy bruising or bleeding tendency, denies any recent change in mood GI Exam Vitals I&O Vital Signs Date Time Temp Pulse Resp B/P Pulse Ox O2 Delivery O2 Flow Rate FiO2 01/15/17 15:45 98.6 87 18 133/102 98 01/15/17 11:58 98.5 78 19 143/101 98 01/15/17 09:41 18 01/15/17 07:38 82 01/15/17 07:19 98.3 78 18 153/101 97 01/15/17 03:34 98.3 80 19 130/90 95 01/15/17 01:02 98.0 80 18 131/96 95 01/14/17 22:10 90 01/14/17 17:54 98.2 82 18 136/83 94 Imaging Last Impressions Chest X-Ray 01/14/17 0737 Signed Impressions: Service Date/Time: January 07:56 - CONCLUSION: No acute disease. Stevan Solis MD Abdomen Ultrasound 01/14/17 0000 Signed Impressions: Service Date/Time: January 14:38 - CONCLUSION: Normal examination except for numerous gallstones and a mildly fatty liver. Yung Gimenez MD Laboratory Test 01/15/17 01/15/17 00:05 06:43 Total Creatine Kinase 226 U/L Troponin I 0.02 NG/ML White Blood Count 4.6 TH/MM3 Red Blood Count 4.79 MIL/MM3 Hemoglobin 14.4 GM/DL Hematocrit 42.8 % Mean Corpuscular Volume 89.3 FL Mean Corpuscular Hemoglobin 30.0 PG Mean Corpuscular Hemoglobin 33.6 % Concent Red Cell Distribution Width 16.7 % Platelet Count 138 TH/MM3 Mean Platelet Volume 10.2 FL Neutrophils (%) (Auto) 40.0 % Lymphocytes (%) (Auto) 37.3 % Monocytes (%) (Auto) 13.0 % Eosinophils (%) (Auto) 7.8 % Basophils (%) (Auto) 1.9 % Neutrophils # (Auto) 1.8 TH/MM3 Lymphocytes # (Auto) 1.7 TH/MM3 Monocytes # (Auto) 0.6 TH/MM3 Eosinophils # (Auto) 0.4 TH/MM3 Basophils # (Auto) 0.1 TH/MM3 CBC Comment DIFF FINAL Differential Comment Sodium Level 139 MEQ/L Potassium Level 3.5 MEQ/L Chloride Level 105 MEQ/L Carbon Dioxide Level 25.1 MEQ/L Anion Gap 9 MEQ/L Blood Urea Nitrogen 15 MG/DL Creatinine 0.91 MG/DL Estimat Glomerular Filtration 103 ML/MIN Rate Random Glucose 98 MG/DL Calcium Level 8.5 MG/DL Total Bilirubin 0.5 MG/DL Aspartate Amino Transf 45 U/L (AST/SGOT) Alanine Aminotransferase 74 U/L (ALT/SGPT) Alkaline Phosphatase 75 U/L Total Protein 7.6 GM/DL Albumin 3.3 GM/DL Physical Examination HEENT: Pupils round and reactive to light; normocephalic; atraumatic; no jaundice. Throat is clear. Poor oral dentition NECK: Neck is supple, no JVD, no lymphadenopathy. CHEST: Chest is clear to auscultation and percussion. CARDIAC: Regular rate and rhythm with no murmur gallop or rubs. ABDOMEN: Soft, nondistended, nontender; no hepatosplenomegaly; bowel sounds are present in all four quadrants. EXTREMITIES: No clubbing, cyanosis, or edema. SKIN: Normal; no rash; no jaundice. IMPLEMENTATION PROJECT COORDINATOR: No focal deficits; alert and oriented times three. Assessment and Plan Plan Elevated liver function tests probably multifactorial relating to polysubstance abuse and hepatitis C and alcoholism and possibly others Patient needs to address the issue of polysubstance abuse and alcoholism first and foremost Hepatitis C could be treated on an outpatient basis once the other problems have been addressed No further recommendations from a GI standpoint we will sign off Stanislav Sosa MD Jan 15, 2017 17:16
--- NOTE | 2017-01-15 23:16 | EKG ---
Date Performed: 01/14/2017 Time Performed: 21:07:26 PTAGE: 61 years EKG: Sinus rhythm WITH OCCASIONAL VENTRICULAR PREMATURE COMPLEXES INCOMPLETE RIGHT BUNDLE BRANCH BLOCK NONSPECIFIC T-W AVE ABNORMALITY BORDERLINE ECG PREVIOUS TRACING : 01/14/2017 16.05 DOCTOR: eLtty Zavaal Interpretating Date/Time 01/15/2017 23:14:10
--- NOTE | 2017-01-15 23:29 | EKG ---
Date Performed: 01/14/2017 Time Performed: 16:05:15 PTAGE: 61 years EKG: Sinus rhythm INCOMPLETE RIGHT BUNDLE BRANCH BLOCK NONSPECIFIC T-WAVE ABNORMALITY BORDERLINE ECG PREVIOUS TRACING : 01/14/2017 08.27 DOCTOR: Letty Zavala Interpretating Date/Time 01/15/2017 23:27:06
--- NOTE | 2017-01-15 23:44 | EKG ---
Date Performed: 01/14/2017 Time Performed: 08:27:07 PTAGE: 61 years EKG: Sinus rhythm POSSIBLE LEFT ATRIAL ENLARGEMENT INCOMPLETE RIGHT BUNDLE BRANCH BLOCK NONSPECIFIC T-WAVE ABNORMALITY BORDERLINE ECG NO PREVIOUS TRACING DOCTOR: Letty Zavala Interpretating Date/Time 01/15/2017 23:42:17
--- NOTE | 2017-01-15 23:45 | EKG ---
Date Performed: 01/14/2017 Time Performed: 05:32:07 PTAGE: 61 years EKG: Sinus rhythm WITH OCCASIONAL VENTRICULAR PREMATURE COMPLEXES INCOMPLETE RIGHT BUNDLE BRANCH BLOCK NONSPECIFIC T-W AVE ABNORMALITY BORDERLINE ECG NO PREVIOUS TRACING DOCTOR: Letty Zavala Interpretating Date/Time 01/15/2017 23:44:03
[2017-01-16 00:44] VITALS: BP 130/82; PULSE 86; RESP 18; TEMP 97.9; O2SAT 97
[2017-01-16 06:14] VITALS: O2SAT 98
[2017-01-16 07:32] LABS: INDIRECT BILIRUBIN 0.4 MG/DL (0.0-0.8); TOTAL BILIRUBIN ADULT 0.5 MG/DL (0.2-1.0)
[2017-01-16 07:55] VITALS: BP 150/110; PULSE 79; RESP 18; TEMP 96.9; O2SAT 94
[2017-01-16] MEDS ORDERED: ASPI325T PO (07:57)
--- NOTE | 2017-01-16 07:57 | HHI.DCPOC ---
Discharge Care Plan Diagnosis: (1) Chest pain (2) Alcohol abuse (3) Cocaine abuse (4) Gallstones (5) Suicidal ideation (6) Elevated LFTs (7) Polysubstance abuse Goals to Promote Your Health * To prevent worsening of your condition and complications * To maintain your health at the optimal level Directions to Meet Your Goals Take your medications as prescribed Follow your dietary instruction Follow activity as directed Keep your appointments as scheduled Take your immunizations and boosters as scheduled If your symptoms worsen call your PCP, if no PCP go to Urgent Care Center or Emergency Room Smoking is Dangerous to Your Health. Avoid second hand smoke Call the 24-hour hour crisis hotline for domestic abuse at Ming Rogers MD Jan 16, 2017 07:57
[2017-01-16] MEDS: amLODIPine BESYLATE 5 MG TAB PO SCH (08:02)
[2017-01-16] MEDS: ASPIRIN 325 MG TAB PO SCH (08:02)
[2017-01-16] MEDS: traMADol HCL 50 MG TAB PO PRN (08:02)
[2017-01-16] MEDS: PANTOPRAZOLE SOD 40 MG DELAYED RELEASE TAB PO SCH (08:02)
[2017-01-16] MEDS: SODIUM CHLORIDE 0.9% FLUSH 5 ML FLUSH IV SCH (08:03)
--- NOTE | 2017-01-16 08:04 | HHI.PR ---
Subjective Remarks Follow-up chest pain, abdominal pain. Patient appears more comfortable this morning. States that his pain is somewhat better. He is concerned about getting psychiatric treatment. No chest pain today. No suicidal ideation. Objective Vitals Vital Signs Date Time Temp Pulse Resp B/P Pulse Ox O2 Delivery O2 Flow Rate FiO2 01/16/17 07:55 96.9 79 18 150/110 94 01/16/17 06:14 98 01/16/17 00:44 97.9 86 18 130/82 97 01/15/17 23:56 80 01/15/17 19:13 97.8 80 18 137/94 96 01/15/17 15:45 98.6 87 18 133/102 98 01/15/17 11:58 98.5 78 19 143/101 98 01/15/17 09:41 18 I/O 01/15/17 01/15/17 01/15/17 01/16/17 01/16/17 01/16/17 07:00 15:00 23:00 07:00 15:00 23:00 Intake Total 240 ml 240 ml Balance 240 ml 240 ml Intake Oral 240 ml 240 ml # Voids 2 1 1 Result Diagram: 01/15/17 0643 01/15/17 0643 Imaging Last Impressions Chest X-Ray 01/14/17 0737 Signed Impressions: Service Date/Time: January 07:56 - CONCLUSION: No acute disease. Stevan Solis MD Abdomen Ultrasound 01/14/17 0000 Signed Impressions: Service Date/Time: January 14:38 - CONCLUSION: Normal examination except for numerous gallstones and a mildly fatty liver. Yung Gimenez MD Objective Remarks General: No acute distress. Heart: Regular rate and rhythm. No murmur. Lungs: Clear to auscultation bilaterally. No wheezes, rales, or rhonchi. Breathing is nonlabored. Abdomen: Soft, nontender, mildly distended. Extremities: No lower extremity edema. Psych: Alert and oriented. Procedures None Urinary Catheter: No Vascular Central Line Catheter: No A/P Problem List: (1) Chest pain ICD Code: R07.9 Status: Acute (2) Alcohol abuse ICD Code: F10.10 Status: Chronic (3) Cocaine abuse ICD Code: F14.10 Status: Chronic (4) Suicidal ideation ICD Code: R45.851 Status: Resolved (5) Gallstones ICD Code: K80.20 Status: Acute (6) Elevated LFTs ICD Code: R94.5 Status: Acute (7) Polysubstance abuse ICD Code: F19.10 Status: Chronic Assessment and Plan 1. Chest pain: Improved. Likely secondary to cocaine use, but patient does report history of [place]. Initial set of cardiac enzymes is negative. Serial cardiac enzymes are negative. 2. Hypertension: Continue Norvasc. 3. Severe anxiety, bipolar disorder: Appreciate psychiatry recommendations. Resume Seroquel. 4. Polysubstance abuse: Patient has been counseled. Urine drug screen positive for cocaine, cannabinoids, benzodiazepines. Patient will need drug/alcohol rehabilitation. He was sent here from [facility] for medical clearance. 5. Suicidal ideation: Patient made suicidal statements in the ER. Appreciate psychiatry recommendations. Patient is not under [employer] act. He has been cleared by psychiatry for outpatient treatment. 6. GI prophylaxis: PPI. 7. DVT prophylaxis: Lovenox. 8. Elevated LFTs, abdominal pain: Hepatitis C antibody positive. Abdominal ultrasound shows fatty liver and gallstones. LFTs are trending down. Appreciate gastroenterology recommendations. Outpatient follow-up for hepatitis C. Discharge Planning Discharge today in stable condition area in case management to assist with transportation to [facility]. Patient has been counseled on the importance of getting help for his drug and alcohol problems. He will need to sign into rehabilitation voluntarily. Heart healthy diet. Activity as tolerated. Patient counseled to avoid alcohol and illicit drugs. Problem Qualifiers (1) Chest pain: Qualified Code: R07.9 - Chest pain, unspecified type Ming Rogers MD Jan 16, 2017 08:04
[2017-01-16] MEDS ORDERED: ASPI81TA11 PO (08:07)
[2017-01-16 09:02] VITALS: RESP 18
== END 2017-01-16 11:16 | disposition home or self-care (01) ==
LOC: NEPC 21:58 → NEDA 01-14 09:48 → NEPGCP 01-14 13:47
PROVIDERS: ADMIT Family Medicine; ATTEND Family Medicine
DX: R07.89 Other chest pain (principal); F14.10 Cocaine abuse, uncomplicated; I10 Essential (primary) hypertension; K85.90 Acute pancreatitis without necrosis or infection, unspecified; F10.20 Alcohol dependence, uncomplicated; R45.851 Suicidal ideations; M79.606 Pain in leg, unspecified; R45.4 Irritability and anger; F17.210 Nicotine dependence, cigarettes, uncomplicated; F12.90 Cannabis use, unspecified, uncomplicated; K80.20 Calculus of gallbladder without cholecystitis without obstruction; K76.0 Fatty (change of) liver, not elsewhere classified; B19.20 Unspecified viral hepatitis C without hepatic coma
CPT/HCPCS: 71010; 76700; 80053; 80074; 80076; 80307; 80320; 81001; 82550; 82552; 83690; 84484; 85025; 93005; 99285; G0378; J1650; 76937

== ENCOUNTER 2017-02-02 22:13 | Emergency (ER) | payer OTHER ==
[~2017-02-02] VITALS: Ht 177.8 cm; Wt 85.0 kg
[~2017-02-02 22:13] MED LIST changes: +AMLO5 PO; +ASPI81TA11 PO; -LISI-363 PO; +LORA-475 PO; -NORV5TAB PO; -RANI150 PO; +SERO300T PO; +ZANT150T2 PO
[2017-02-02 22:48] VITALS: BP 129/91; PULSE 74; RESP 18; TEMP 97.9; O2SAT 99
--- NOTE | 2017-02-02 23:34 | PD ---
HPI Chief Complaint: Psychiatric Symptoms Time Seen by Provider: 23:11 Travel History International Travel<30 days: No Contact w/Intl Traveler<30days: No Traveled to known affect area: No History of Present Illness HPI 61yo M with PMH of depression and pancreatitis presents to the ED with c/o feeling depressed after losing his and has suicidal ideation. Admits to drinking and smoking marajuana but denies overdose or taking other drugs. Denies any fever, chest pain, sob, n/v, abdominal pain, weakness or numbness. PFSH Past Medical History Blood Disorders: No Depression: Yes (patient stated he has been feeling depressed ) Cancer: No Cardiovascular Problems: Yes (HTN) Endocrine: No Genitourinary: No Hypertension: Yes Immune Disorder: No Implanted Vascular Access Dvce: Yes Musculoskeletal: No Neurologic: No Reproductive: No Respiratory: No Pancreatitis: Yes ?: Not Past Surgical History Body Medical Devices: L knee and hip orthopedic surgeries Other Surgery: Yes (L knee and hip replacement) Social History Alcohol Use: Yes ( beer and liquor daily) Tobacco Use: Yes (1ppd) Substance Use: Yes (marijuana/coccaine) Allergies-Medications (Allergen,Severity, Reaction): Coded Allergies: Milk (Verified Adverse Reaction, Severe, Nausea/Vomiting, 01/13/17) Reported Meds & Prescriptions Reported Meds & Active Scripts Active Reported Seroquel (Quetiapine Fumarate) 300 Mg Tab 300 Mg PO DAILY Zantac (Ranitidine HCl) 150 Mg Tab 150 Mg PO DAILY Norvasc (Amlodipine Besylate) 5 Mg Tab 5 Mg PO DAILY Review of Systems Except as stated in HPI: all other systems reviewed are Neg Physical Exam Narrative GENERAL: 61yo M not in distress. SKIN: Warm and dry. HEAD: Atraumatic. Normocephalic. EYES: Pupils equal and round. No scleral icterus. No injection or drainage. ENT: No nasal bleeding or discharge. Mucous membranes pink and moist. NECK: Trachea midline. No JVD. CARDIOVASCULAR: Regular rate and rhythm. No murmur appreciated. RESPIRATORY: No accessory muscle use. Clear to auscultation. Breath sounds equal bilaterally. GASTROINTESTINAL: Abdomen soft, non-tender, nondistended. MUSCULOSKELETAL: No obvious deformities. No clubbing. No cyanosis. No edema. NEUROLOGICAL: Awake and alert. No obvious cranial nerve deficits. Motor grossly within normal limits. Normal speech. Data Data Last Documented VS Vital Signs Date Time Temp Pulse Resp B/P Pulse Ox O2 Delivery O2 Flow Rate FiO2 02/03/17 06:15 92 18 143/70 96 Room Air 02/02/17 22:48 97.9 Orders Complete Blood Count With Diff (02/02/17 23:12) Comprehensive Metabolic Panel (02/02/17 23:12) Urinalysis - C+S If Indicated (02/02/17 23:12) Psych Screen (02/02/17 23:12) Drug Screen, Random Urine (02/02/17 23:12) Alcohol (Ethanol) (02/02/17 23:12) Salicylates (Aspirin) (02/02/17 23:12) Tylenol (Acetaminophen) (02/02/17 23:12) Thiamine (Vit B1) (Vitamin B1) (02/03/17 00:30) Restraints Violent (02/03/17 02:28) Amlodipine (Norvasc) (02/03/17 03:30) Lorazepam (Ativan) (02/03/17 03:30) Acetaminophen (Tylenol) (02/03/17 10:15) Labs Laboratory Tests Test 02/02/17 02/03/17 23:30 03:45 White Blood Count 7.4 TH/MM3 Red Blood Count 5.03 MIL/MM3 Hemoglobin 15.1 GM/DL Hematocrit 44.1 % Mean Corpuscular Volume 87.7 FL Mean Corpuscular Hemoglobin 30.1 PG Mean Corpuscular Hemoglobin 34.3 % Concent Red Cell Distribution Width 16.7 % Platelet Count 133 TH/MM3 Mean Platelet Volume 9.3 FL Neutrophils (%) (Auto) 45.7 % Lymphocytes (%) (Auto) 40.4 % Monocytes (%) (Auto) 12.1 % Eosinophils (%) (Auto) 0.9 % Basophils (%) (Auto) 0.9 % Neutrophils # (Auto) 3.4 TH/MM3 Lymphocytes # (Auto) 3.0 TH/MM3 Monocytes # (Auto) 0.9 TH/MM3 Eosinophils # (Auto) 0.1 TH/MM3 Basophils # (Auto) 0.1 TH/MM3 CBC Comment DIFF FINAL Differential Comment Sodium Level 139 MEQ/L Potassium Level 3.7 MEQ/L Chloride Level 101 MEQ/L Carbon Dioxide Level 31.7 MEQ/L Anion Gap 6 MEQ/L Blood Urea Nitrogen 11 MG/DL Creatinine 1.28 MG/DL Estimat Glomerular Filtration 69 ML/MIN Rate Random Glucose 92 MG/DL Calcium Level 8.8 MG/DL Total Bilirubin 0.4 MG/DL Aspartate Amino Transf 285 U/L (AST/SGOT) Alanine Aminotransferase 338 U/L (ALT/SGPT) Alkaline Phosphatase 93 U/L Total Protein 9.1 GM/DL Albumin 4.2 GM/DL Salicylates Level LESS THAN 1.7 MG/DL Acetaminophen Level LESS THAN 2.0 MCG/ML Ethyl Alcohol Level 261 MG/DL Urine Color YELLOW Urine Turbidity CLEAR Urine pH 5.5 Urine Specific [place] 1.015 Urine Protein NEG mg/dL Urine Glucose (UA) NEG mg/dL Urine Ketones NEG mg/dL Urine Occult Blood NEG Urine Nitrite NEG Urine Bilirubin NEG Urine Urobilinogen LESS THAN 2.0 MG/DL Urine Leukocyte Esterase NEG Urine RBC LESS THAN 1 /hpf Urine WBC 1 /hpf Urine Hyaline Casts 1 /lpf Urine Mucus FEW /lpf Microscopic Urinalysis Comment CULT NOT INDICATED Urine Opiates Screen NEG Urine Barbiturates Screen NEG Urine Amphetamines Screen NEG Urine Benzodiazepines Screen POS Urine Cocaine Screen POS Urine Cannabinoids Screen POS MDM Medical Decision Making Medical Screen Exam Complete: Yes Emergency Medical Condition: Yes Differential Diagnosis Depression vs. alcohol induced mood disorder vs. drug induced mood disorder Narrative Course 61yo M here under aviles act because he states he feels suicidal and depressed. Pt admits to drinking alcohol today. Labs reviewed, no leukocytosis. Elevated AST/ALT. No abdominal pain. Blood alcohol is 261. Negative acetaminophen and salicylate level. UA negative. U tox positive for multiple substances. Pt is medically clear for psych evaluation. Diagnosis Primary Impression: Depression Qualified Code: F32.9 - Depression, unspecified depression type Mila Hoffman DO Feb 02, 2017 23:34
[2017-02-02 23:46] LABS: AUTOMATED NEUTROPHIL # 3.4 TH/MM3 (1.8-7.7); BASOPHIL # 0.1 TH/MM3 (0-0.2); BASOPHIL % 0.9 % (0.0-2.0); EOSINOPHIL # 0.1 TH/MM3 (0-0.4); EOSINOPHIL % 0.9 % (0.0-4.0); HEMATOCRIT 44.1 % (39.0-51.0); HEMO FLAGS DIFF FINAL; LYMPH % 40.4 % (9.0-44.0); MEAN CELL VOLUME 87.7 FL (80.0-100.0); MEAN CORPUSCULAR HEMOGLOBIN 30.1 PG (27.0-34.0); MEAN CORPUSCULAR HGB CONC 34.3 % (32.0-36.0); MONO % 12.1 % (0.0-8.0); NEUT % 45.7 % (16.0-70.0); PLATELET COUNT 133 TH/MM3 (150-450); RED BLOOD COUNT 5.03 MIL/MM3 (4.50-5.90); RED CELL DISTRIBUTION WIDTH 16.7 % (11.6-17.2); WHITE BLOOD COUNT 7.4 TH/MM3 (4.0-11.0)
[2017-02-03 00:09] LABS: ANION GAP 6 MEQ/L (5-15); AST (GOT) 285 U/L (15-37); BICARBONATE 31.7 MEQ/L (21.0-32.0); BLOOD UREA NITROGEN 11 MG/DL (7-18); CHLORIDE 101 MEQ/L (98-107); GLOMERULAR FILTRATION RATE 69 ML/MIN (>89); POTASSIUM 3.7 MEQ/L (3.5-5.1); SODIUM (NA) 139 MEQ/L (136-145)
[2017-02-03 00:12] LABS: ALKALINE PHOSPHATASE 93 U/L (45-117); ALT (GPT) 338 U/L (12-78); TOTAL BILIRUBIN ADULT 0.4 MG/DL (0.2-1.0)
[2017-02-03 00:23] LABS: ACETAMINOPHEN LESS THAN 2.0 MCG/ML (10.0-30.0)
[2017-02-03] MEDS ORDERED: THIAMINE HCL 100 MG TAB PO ONE (00:30)
[2017-02-03 02:35] VITALS: BP 138/86; PULSE 96; RESP 16; O2SAT 96
[2017-02-03 03:30] VITALS: BP 168/103; PULSE 92; RESP 19
[2017-02-03] MEDS ORDERED: LORazepam 2 MG TAB PO ONE (03:30)
[2017-02-03] MEDS ORDERED: amLODIPine BESYLATE 5 MG TAB PO ONE (03:30)
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
[2017-02-03 04:08] LABS: BLOOD, URINE NEG (NEG); COMMENT (UR) CULT NOT INDICATED; CULTURE IF INDICATED CULT NOT INDICATED; GLUCOSE,URINE NEG (NEG); HYALINE CAST, URINE 1 /lpf (RARE); KETONE, URINE NEG (NEG); MUCUS URINE FEW /lpf (OCC); NITRITE,URINE NEG (NEG); PH, URINE 5.5 (5.0-8.5); URINE COLOR YELLOW (YELLW/STRAW)
[2017-02-03 04:12] LABS: AMPHETAMINE, URINE NEG (NEG); BARBITURATES, URINE NEG (NEG); COCAINE, URINE POS (NEG)
[2017-02-03 06:15] VITALS: BP 143/70; PULSE 92; RESP 18; O2SAT 96
[2017-02-03] MEDS ORDERED: ACETAMINOPHEN 325 MG TAB PO ONE (10:15)
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
== END 2017-02-03 12:25 | disposition home or self-care (01) ==
LOC: NEPA 22:13 → NEPJ 02-03 12:25
DX: F43.25 Adjustment disorder with mixed disturbance of emotions and conduct (principal); F32.9 Major depressive disorder, single episode, unspecified; F10.20 Alcohol dependence, uncomplicated; F14.90 Cocaine use, unspecified, uncomplicated
CPT/HCPCS: 80053; 80307; 81001; 85025; 99285